=== PATIENT | female | born 1965 | race Caucasian/White ===

== ENCOUNTER 2019-10-02 16:36 | Outpatient (CLI) | payer BC, SELFPAY ==
--- NOTE | 2019-10-02 17:00 | CT_ITS ---
WS: [id number] CT NECK TECHNIQUE: Noncontrast CT of the neck with coronal and sagittal reformatted images. CLINICAL INFORMATION: DYSPHAGIA,UNSPECIFIED TYPE COMPARISON: None. DLP: [id number] scans at [facility] use at least one of these dose optimization techniques: automat ed exposure control; mA and/or kV adjustment per patient size (includes targeted exams where dose is matched to clinical indication); or iterative reconstruction. FINDINGS: Salivary glands are unremarkable. Normal parotid and submandibular glands. Thyroid gland is normal. N ormal parapharyngeal fat. Posterior nasopharynx is normal. Normal tongue base. Normal epiglottis and vallecula. No evidence of supraglottic or glottic mass. No cervical lymphadenopathy. Paranasal sinuse s and mastoid air cells are well aerated. Postoperative breast prosthesis. Lung apices are well aerat ed. 2 small intracranial calcified lesions along the left anterior temporal lobe likely represent small m eningiomas largest measuring 9 mm. This can be followed up with MRI. CT/CT neck wo con [id number] IMPRESSION: 1. Salivary glands are normal. 2. No cervical lymphadenopathy. 3. No evidence of supraglottic or glottic mass. 4. Calcified extra-axial lesions along the left anterior temporal lobe the lar gest measuring 9 mm likely represent incidental meningiomas. No significant mas s effect. This can be followed up with MRI without and with gadolinium.
== END 2019-10-02 16:37 | disposition home or self-care (01) ==
LOC: RAD 16:41
PROVIDERS: Family Provider Nurse Practitioner; PCP Nurse Practitioner; Visit Provider Otolaryngology
DX: G93.89 Other specified disorders of brain (principal); R13.10 Dysphagia, unspecified
CPT/HCPCS: 70490

== ENCOUNTER → 2019-10-04 15:28 | Outpatient (BNVA) | payer BC, SELFPAY | PROVIDERS: Family Provider Nurse Practitioner; PCP Nurse Practitioner; Visit Provider Otolaryngology | DX: R06.02 Shortness of breath (principal); J02.9 Acute pharyngitis, unspecified; R47.02 Dysphasia; R13.10 Dysphagia, unspecified; D32.9 Benign neoplasm of meninges, unspecified | CPT/HCPCS: 99214 ==

== ENCOUNTER 2020-12-10 10:53 | Outpatient (CLI) | payer OTHER, SELFPAY ==
--- NOTE | 2020-12-10 10:57 | MM_ITS ---
WS: [id number] BILATERAL DIGITAL SCREENING MAMMOGRAPHY WITH CAD CLINICAL INFORMATION: SCREENING HISTORY: Screening mammogram. No current complaints. COMPARISON: TECHNIQUE: Bilateral CC and MLO views. FINDINGS: Bilateral breast implants appear intact Scattered fibroglandular densities bilaterally. No suspicious focal mass, asymmetry, calcifications, or architectural distortion. No evidence of malignancy. MM/[place] [id number] IMPRESSION: BI-RADS: 2-Benign FOLLOW UP: 1 Year Follow-up Recommend return to annual screening mammography.
== END 2020-12-10 10:54 | disposition home or self-care (01) ==
LOC: RADSHAW 10:55
PROVIDERS: PCP Physician Assistant; Visit Provider Physician Assistant
DX: Z12.31 Encounter for screening mammogram for malignant neoplasm of breast (principal)
CPT/HCPCS: 77067

== ENCOUNTER 2022-04-06 07:15 | Outpatient (CLI) | payer OTHER, SELFPAY ==
--- NOTE | 2022-04-06 07:21 | MM_ITS ---
WS: [id number] BILATERAL SCREENING DIGITAL BREAST MAMMOGRAPHY WITH LAZARA DISPLACEMENT VIEWS. CAD PERFORMED. HISTORY: SCREENING COMPARISON: 12/10/2020 and 07/22/2016 Bilateral craniocaudal and mediolateral oblique views are performed with tomosynthesis and SM. Lazara displacement views in CC and MLO projection also performed. Breasts composition: There are scattered areas of fibroglandular density. Implants are prepectoral and intact. No mass or calcification. No distortion or nipple retraction. MM/[place] [id number] IMPRESSION: BI-RADS: 2-Benign FOLLOW-UP: 1 Year Follow-up
== END 2022-04-06 07:16 | disposition home or self-care (01) ==
PROVIDERS: PCP Physician Assistant; Visit Provider Physician Assistant
DX: Z12.31 Encounter for screening mammogram for malignant neoplasm of breast (principal)
CPT/HCPCS: 77063; 77067

== ENCOUNTER 2022-12-08 13:06 | Outpatient (CLI) | payer OTHER, SELFPAY ==
--- NOTE | 2022-12-08 13:20 | MR_ITS ---
WS: [id number] MRI OF THE PELVIS WITHOUT AND WITH GADOLINIUM ENHANCEMENT INDICATION: Chronic pelvic pain. TECHNIQUE: 6 coronal T1, coronal STIR, axial T1, axial T2, sagittal T2, post gadolinium imaging with fat saturation technique. FINDINGS: Prior hysterectomy. Small bladder cystocele. No free fluid in the cul-de-sac. Normal sigmoi d colon. Tiny fat-containing umbilical hernia. Normal bone marrow signal in the sacrum and bony pelvis. No sacral insufficiency fractures. No eviden ce of sacroiliitis. Normal bone marrow signal in both hips. Mild degenerative narrowing both hips. No rmal bone marrow signal in the lower lumbar spine. Distal sacrum and coccyx appear normal. No other s uspicious findings. MR/MR pelvis wo/w con [id number] IMPRESSION: 1. Prior hysterectomy. 2. Tiny bladder cystocele. 3. Normal bone marrow signal in the sacrum and bony pelvis. No insufficiency f ractures. 4. No evidence of sacroiliitis. 5. Mild degenerative narrowing both hips. 6. No acute pelvic findings.
[2022-12-08] MEDS: gadobenate dimeglumine 20 mL vial IV (14:11)
== END 2022-12-08 13:07 | disposition home or self-care (01) ==
PROVIDERS: PCP Physician Assistant; Visit Provider Physician Assistant
DX: M53.3 Sacrococcygeal disorders, not elsewhere classified (principal); R10.2 Pelvic and perineal pain; Z90.710 Acquired absence of both cervix and uterus; N81.10 Cystocele, unspecified
CPT/HCPCS: 72197; A9577

== ENCOUNTER → 2022-12-24 16:12 | Outpatient (BNVA) | payer OTHER, SELFPAY | PROVIDERS: PCP Physician Assistant; Referring Provider Physician Assistant; Visit Provider Student in an Organized Health Care Education/Training Program | DX: R22.32 Localized swelling, mass and lump, left upper limb (principal) | CPT/HCPCS: 73130 ==

== ENCOUNTER 2023-03-09 05:50 | Day surgery (SDC) | payer OTHER, SELFPAY ==
[2023-03-08 10:57] VITALS: BMI 31.3
[2023-03-09] VITALS (7 sets, daily range): BP systolic 101–126; BP diastolic 58–71; PULSE 67–82; RESP 12–18; TEMP 36.2–36.4; O2SAT 95–100
[2023-03-09] MEDS: sodium chloride 0.9% 1,000 ML 30 ML IV (06:16)
[2023-03-09] MEDS: acetaminophen 1,000 MG/100 ML PIGGYBACK 400 MG IV (06:17)
[2023-03-09] MEDS: ketorolac 30 mg/mL INJ IVP (06:17)
--- NOTE | 2023-03-09 06:54 | W.PM.OPSFHP ---
Same Day Surgery H&P Indication for Procedure/HPI DATE OF PROCEDURE: March 09, 2023 CHIEF COMPLAINT/INDICATIONFOR SURGICAL PROCEDURE: Left dorsal wrist ganglion cyst. No change in HPI since 12/24/2022 office note PREOP DIAGNOSIS: Left dorsal wrist ganglion cyst PLANNED PROCEDURE: Operation Date: 03/09/23 07:00 Proposed Procedures p left dorsal wrist ganglion cyst excision: 38089, R22.32(Left) - Paul Georgiana, DO Medications/Allergies* Home Medications Medication Instructions Recorded Confirmed Type topiramate 50 mg tablet 50 mg PO BEDTIME 03/08/23 03/08/23 History venlafaxine 75 mg capsule,extended 75 mg PO DAILY 03/08/23 03/08/23 History release 24 hr Allergies/Adverse Reactions Allergy/AdvReac Type Severity Reaction Status Date / Time No Known Allergies Allergy Verified 03/09/23 06:20 Current Medications: Generic Name Dose Route Start Last Admin Trade Name Freq PRN Reason Stop Dose Admin Sodium Chloride 1,000 mls @ 30 mls/hr 03/09/23 06:00 03/09/23 06:16 Sodium Chloride 0.9% IV 03/10/23 05:59 30 mls/hr .Q24H TOM Administration Pertinent History/Comorbid Conditions* Medical History (Updated 11/19/19 @ 14:30 by ALLI Castillo) Anxiety Chronic migraine Laryngopharyngeal reflux (LPR) Vitamin D deficiency Surgical History (Updated 11/13/19 @ 15:58 by ALLI Castillo) H/O shoulder surgery right History of augmentation mammoplasty History of section History of hysterectomy History of tubal ligation Family History (Updated 11/13/19 @ 10:36 by BAKARI Mcmanus) Cancer Mother Breast Social History Smoking and tobacco status: never smoked Second hand smoke exposure: No Smoking risk assessment/counseling performed?: No Alcohol intake: never Desire information about alcohol rehabilitation?: No Counseling given: No Substance/Drug Use: never Desire information about substance/drug rehabilitation?: No Counseling given: No Caregiver/support person: No Lives independently: Yes Household members: spouse Housing: House Marital status: Do you think of yourself as: Straight/Heterosexual Current gender identity: Female Pertinent Exam Findings alert, oriented x 3, operative site marked and procedure specific exam findings Examination of the left wrist: Pos tinels over the dorsal ganglion cyst dorsal soft mobile mass of wrist ttp significant tender to palpation over mass pain w/ wrist flexion and extreme extension surgical incision prior well-healed no signs of infection neg tinels and compression median nerve Able to make a fist.? Sensation intact light touch to radial/ulnar/median nerve distribution Recommendations Surgery/Procedure today Other Plans: Patient understands risk benefits complication alternatives with surgery and elects to proceed with left dorsal wrist ganglion cyst excision all questions answered. Coding Level of Care Code Acute Code for Chg Fwd Diagnoses
[2023-03-09] MEDS: ceFAZolin 2,000 MG in sodium chloride 0.9% (plus) 50 ML 100 MG IV (06:58)
[2023-03-09] MEDS: sodium bicarbonate 4.2% 0.5 mEq/mL SDV 5mL INTRADERMA (07:24)
[2023-03-09] MEDS: lidocaine-epi 1% 20 mL INJ INJECTION (07:24)
--- NOTE | 2023-03-09 07:45 | PC.NURSE ---
Pt arrived to PACU, awake, A&O x3, pt denies any pain or nausea at this time. Dressing to left wrist C/D/I, left fingers p/w/d, cap refill < 3 seconds, able to wiggle fingers. LUE elevated on pillow.
--- NOTE | 2023-03-09 07:49 | P.OP_ITS ---
Operative Report Date of procedure: March 09, 2023 Pre-op diagnosis: Preop Diagnosis Left dorsal wrist ganglion cyst Procedure: Procedure Left dorsal wrist ganglion cyst excision Specimens removed/disposition: Left dorsal wrist ganglion cyst excised and sent for pathology Surgeon: Paul Stoner DO Estimated blood loss: 1 mL Tourniquet time 13 minutes IV fluids: See anesthesia record Complications: None Findings: See operative report narrative Condition: stable Disposition: same day Brief History: Patient's been worked up in the outpatient setting and findings consistent with preoperative diagnosis.? Patient has a left dorsal wrist ganglion cyst. She had this removed over 5 years ago she had done well however this is now subsequently recurred and she is having significant increased pain and dysfunction of her daily activities she would like to have this taken out again after we have talked about treatment options in the office.? We talked about treatment options as far as nonoperative and operative intervention.? At this point time she like a more permanent solution in the lowest chance of recurrence and as result through shared decision making we agreed to proceed with a left dorsal wrist ganglion cyst excision.? Patient understands risk benefits complication alternatives surgical nonsurgical treatment options.? Understanding risk of surgery she agrees to proceed.? All questions answered.? Consent obtained in the office. Procedure: Patient seen evaluate in the preoperative holding area.? Consent was signed and reviewed with patient.? All questions were answered at that time.? Correct extremity was then marked.? Once seen evaluated by anesthesia patient was then brought back to the operative suite.? Patient was then placed in supine position all bony prominences well-padded patient was properly secured to the bed.? An armboard was then applied for the left upper extremity.? A nonsterile tourniquet was applied to the left upper extremity arm.? Patient then underwent anesthesia per the anesthesia department.? Once appropriately anesthetized the left upper extremity was then prepped and draped in standard orthopedic fashion.? Final timeout performed.? Patient received appropriate preoperative antibiotics. Under sterile aseptic technique I began with local anesthetic for my preplanned surgical site.? Then I utilized an Esmarch tourniquet to exsanguinate the left upper extremity to 250 mmHg Patient had a large soft mobile ganglion cyst which a incision was then centered longitudinally directly over the cyst over the dorsal aspect of the left wrist with a continuation from the previous incision.? sharp scalpel incision was made through skin and subcutaneous tissue.? I then switched to dissection scissors and spread longitudinally to identify branches of the superficial radial nerve.? These were protected throughout the case.? I immediately encountered the ganglio n cyst which was just distal to the extensor retinaculum and between the third and fourth dorsal compartments.? I then protected the tendons and identified the ganglion cyst subsequently dissected circumferentially all the way to the base which was connected to the dorsal capsule.? This was then transected at the base with bipolar electrocautery and I utilized bipolar electrocautery to to seal off the dorsal capsule and prevent any further cyst recurrence.? Cyst was then sent for pathology.? I then thoroughly irrigated the wound bed tourniquet was deflated.? Hemostasis was satisfactory with bipolar electrocautery.? I then closed the incision in layered fashion with 3-0 Vicryl suture subcutaneously and running horizontal mattress nylon stitch for skin.? Xeroform over the incisions 4 x 4's ABD soft roll and a volar splint was applied.? Patient was then awakened from anesthesia and taken back in stable condition. Disposition: Patient taken back in stable condition recovering well.? Patient will receive appropriate discharge instructions as well as pain medication postoperatively.? We will follow-up with in the orthopedic office in 2 weeks.? Patient understands of any questions or concerns and contact the office.
--- NOTE | 2023-03-09 07:49 | PM.OP2 ---
Brief Operative Note Date of procedure: 03/09/23 Pre-op diagnosis: Left dorsal wrist recurrent ganglion cyst Post-op diagnosis: same Procedure Done: Left dorsal wrist ganglion cyst excision Surgeon: Paul Stoner Estimated blood loss (mL): 1 Complications: None Post-op Plan: Patient receive appropriate discharge instructions as well as pain medication postoperatively. We will follow-up in the orthopedic office in 2 weeks maintain splint on in place until follow-up Contact the office for any questions or concerns Condition: stable Disposition: same day Coding Level of Care Code Acute Code for Heather Cardozo
--- NOTE | 2023-03-09 07:49 | PM.PACU ---
PACU note Narrative: We will go forPatient taken to PACU in stable condition recovering well pain controlled. Patient has decreased sensation secondary to local anesthesia. Fingertips warm well-perfused brisk cap refill less than 2 seconds dressings are on in place clean dry and intact. Patient is able to wiggle fingers. Exam: awake Disposition: discharged
--- NOTE | 2023-03-09 12:50 | ANES.PREANE2 ---
Pre-Anesthetic Assessment Height/Weight: Height 1.5 m Weight 70.307 kg Temp Pulse Resp BP Pulse Ox O2 Del Method 97.4 F L 75 18 113/67 98 Room Air 03/09/23 08:10 03/09/23 08:13 03/09/23 08:13 03/09/23 08:13 03/09/23 08:13 03/09/23 08:13 Preop Diagnosis: Left dorsal wrist ganglion cyst Operation Date: 03/09/23 07:00 Proposed Procedures p left dorsal wrist ganglion cyst excision: 45120, R22.32(Left) - Paul Stoner, Familial anesthetic complications: none Was Beta Chepe taken within 24 hours: N/A Was Clonidine taken within 24 hours: N/A Last intake: Intake Last Liquid Date 03/08/23 Last Liquid Time 17:00 Last Solid Date 03/08/23 Last Solid Time 17:00 Social No alcohol and No tobacco Exam alert, oriented x 3, clear to auscultation bilaterally and regular rate & rhythm Airway Submandibular: within normal limits Cervical ROM: within normal limits Mallampati: Class II Dentition: full Neuropsych Anxiety and Headache Anesthetic Plan ASA status: 2 Anesthesia: MAC Medications/Allergies Home Medications Medication Instructions Recorded Confirmed Last Taken Type rizatriptan 5 mg tablet See Rx Instructions PO .COMPLEX 30 04/04/20 03/08/23 03/05/23 Rx days #6 tabs topiramate 50 mg tablet 50 mg PO BEDTIME 03/08/23 03/08/23 03/08/23 History venlafaxine 75 mg capsule,extended 75 mg PO DAILY 03/08/23 03/08/23 03/08/23 History release 24 hr hydrocodone 5 mg-acetaminophen 325 1 tab PO Q6H PRN pain 5 days #20 03/09/23 Unknown Rx mg tablet tabs ondansetron 4 mg disintegrating 4 mg PO DAILY 5 days #5 tabs 03/09/23 Unknown Rx tablet Allergies Allergy/AdvReac Type Severity Reaction Status Date / Time No Known Allergies Allergy Verified 03/09/23 06:20 PFS Anesthesia Medical History Anxiety Chronic migraine Laryngopharyngeal reflux (LPR) Vitamin D deficiency Surgical History H/O shoulder surgery right History of augmentation mammoplasty History of section History of hysterectomy History of tubal ligation Family History Mother Cancer Breast Social History Smoking and tobacco status: never smoked Second hand smoke exposure: No Smoking risk assessment/counseling performed?: No Alcohol intake: never Desire information about alcohol rehabilitation?: No Counseling given: No Substance/Drug Use: never Desire information about substance/drug rehabilitation?: No Counseling given: No Caregiver/support person: No Lives independently: Yes Household members: spouse Housing: House Marital status: Do you think of yourself as: Straight/Heterosexual Current gender identity: Female Data Anesthesia Cardiac Studies: No Data to Display
--- NOTE | 2023-03-09 17:47 | ANE.PACU2 ---
Inpatient post-anesthesia follow up: Airway intact: Yes Vital signs: Temperature 97.4 F Pulse Rate 75 Respiratory Rate 18 Blood Pressure 113/67 Pulse Oximetry 98 Oxygen Delivery Me thod Room Air Oxygen Flow Rate Fraction of Inspir ed Oxygen Hydration adequate: Yes Nausea and vomiting: No Pain level: 1 Mental status: Baseline
== END 2023-03-09 08:30 | disposition home or self-care (01) ==
PROVIDERS: PCP Physician Assistant; Visit Provider Student in an Organized Health Care Education/Training Program
PROC: (CPT 25111; principal; 2023-03-09 07:00)
DX: M67.432 Ganglion, left wrist (principal)
CPT/HCPCS: 25111; 88304; J0131; J0690; J1885; J2704; J3010; J7030

== ENCOUNTER 2023-11-15 07:31 | Outpatient (CLI) | payer OTHER, SELFPAY ==
--- NOTE | 2023-11-15 07:36 | MM_ITS ---
WS: [id number] BILATERAL SCREENING DIGITAL BREAST MAMMOGRAPHY WITH LAZARA DISPLACEMENT VIEWS. CAD PERFORMED. HISTORY: SCREENING COMPARISON: 04/06/2022, 12/10/2020 Bilateral craniocaudal and mediolateral oblique views are performed with tomosynthesis and SM. Lazara displacement views in CC and MLO projection also performed. Breasts composition: There are scattered areas of fibroglandular density. Prepectoral implants are identified and intact. There is mild developing capsular contraction. No ext ravasation or collapse. There are a few small arterial calcifications scattered throughout the breast . No mass or distortion. IMPRESSION: MM/[place] [id number] BI-RADS: 2-Benign FOLLOW-UP: 1 Year Follow-up
== END 2023-11-15 07:32 | disposition home or self-care (01) ==
PROVIDERS: PCP Physician Assistant; Visit Provider Physician Assistant
DX: Z12.31 Encounter for screening mammogram for malignant neoplasm of breast (principal)
CPT/HCPCS: 77063; 77067

== ENCOUNTER 2025-02-27 09:59 | Outpatient (CLI) | payer OTHER, SELFPAY ==
--- NOTE | 2025-02-27 10:04 | MM_ITS ---
WS: [id number] BILATERAL 3D TOMOSYNTHESIS DIGITAL SCREENING MAMMOGRAPHY WITH CAD CLINICAL INFORMATION: SCREENING HISTORY: Screening mammogram. No current complaints. COMPARISON: 2023 TECHNIQUE: Bilateral CC and MLO views. FINDINGS: Stable bilateral breast implants. Capsular calcifications Scattered fibroglandular densities bilaterally. No suspicious focal mass, asymmetry, calcifications, or architectural distortion. No evidence of malignancy. Vascular calcifications. MM/MM scr BI tomosynthesis [id number] IMPRESSION: DENSITY: There are scattered areas of fibroglandular density. BI-RADS: 2 - Benign. FOLLOW UP: 1 Year Follow-up Recommend return to annual screening mammography.
== END 2025-02-27 10:00 | disposition home or self-care (01) ==
LOC: RAD 10:00
PROVIDERS: PCP Physician Assistant; Visit Provider Physician Assistant
DX: Z12.31 Encounter for screening mammogram for malignant neoplasm of breast (principal); R92.323 Mammographic fibroglandular density, bilateral breasts; R92.1 Mammographic calcification found on diagnostic imaging of breast; Z98.82 Breast implant status
CPT/HCPCS: 77063; 77067